=== PATIENT | female | born 1965 | race Caucasian/White ===

== ENCOUNTER 2018-05-04 21:08 | Inpatient (IN) | payer OTHER ==
[~2018-05-04] VITALS: Ht 162.6 cm; Wt 79.2 kg
[2018-05-04 21:37] VITALS: Ht 162.6 cm; Wt 79.2 kg
[2018-05-04 23:45] LABS: BASOPHIL % 0.5 % (0-2); PLATELET COUNT 286 x10^3mcL (130-400)
[2018-05-04 23:55] LABS: ALBUMIN 4.2 g/dL (3.4-5.0); ALKALINE PHOSPHATASE 93 U/L (46-116); ALT/SGPT 30 U/L (14-59); AST/SGOT 15 U/L (15-37); BILIRUBIN TOTAL 1.2 mg/dL (0.20-1.00); CARBON DIOXIDE 30.6 mmol/L (21-32); CHLORIDE SERUM 88 mmol/L (98-107); GLUCOSE SERUM 90 mg/dL (74-106); LIPASE 302 IU/L (73-393); POTASSIUM SERUM 3.8 mmol/L (3.5-5.1); SODIUM SERUM 125 mmol/L (136-145); TOTAL PROTEIN, SERUM 7.2 g/dL (6.4-8.2)
[2018-05-04 23:56] LABS: CREATININE SERUM 0.5 mg/dL (0.6-1.0); GFR1 > 60 mL/min
[2018-05-05 01:27] LABS: UA SPECIFIC GRAVITY <=1.005 (1.005-1.035); microscopic required? YES; urine erythrocyte NEGATIVE (NEGATIVE)
[2018-05-05] MEDS ORDERED: METFORMIN HCL850 MG PO (01:59)
[2018-05-05] MEDS ORDERED: HYDROCHLOROTHIA25 MG PO (02:00)
[2018-05-05] MEDS ORDERED: LOSARTAN POTASS50 M1 PO (02:00)
[2018-05-05] MEDS ORDERED: ACT30 (02:00)
[2018-05-05] MEDS ORDERED: CYMBALTA30 M1 PO (02:23)
[2018-05-05 02:29] LABS: MAGNESIUM 1.2 mg/dL (1.8-2.4); PHOSPHOROUS 3.4 mg/dL (2.5-4.9)
[2018-05-05 02:40] LABS: FREE T4 1.41 ng/dL (0.76-1.46); FREE THYROXINE INDEX 3.3 ug/dL (1.4-4.5); T4(THYROXINE) 8.8 ug/dL (4.7-13.3)
[2018-05-05 02:41] LABS: T3 TOTAL 1.11 ng/mL
[2018-05-05 02:48] LABS: AMPHETAMINE QUAL UR NONE DETECTED (See below)
[2018-05-05 03:51] VITALS: BP 134/70
[2018-05-05 05:38] LABS: CALCIUM 9.5 mg/dL (8.5-10.1); CARBON DIOXIDE 28.6 mmol/L (21-32); CHLORIDE SERUM 97 mmol/L (98-107); GLUCOSE SERUM 116 mg/dL (74-106); MAGNESIUM 1.2 mg/dL (1.8-2.4); PHOSPHOROUS 3.4 mg/dL (2.5-4.9); PLATELET COUNT 280 x10^3mcL (130-400); POTASSIUM SERUM 3.6 mmol/L (3.5-5.1); RED CELL DISTRIBUTION WIDTH 13.9 % (11.5-14.5); SODIUM SERUM 131 mmol/L (136-145)
[2018-05-05 05:39] LABS: HDL CHOLESTEROL 88 mg/dL (40-60)
[2018-05-05 05:41] LABS: CREATININE SERUM 0.5 mg/dL (0.6-1.0); GFR1 > 60 mL/min
[2018-05-05 05:45] LABS: CHOLESTEROL 180 mg/dL (<200); TRIGLYCERIDES 121 mg/dL (<150)
[2018-05-05 08:45] VITALS: BP 120/75
[2018-05-05] MEDS ORDERED: LEVAQUIN750 MG PO (09:05)
[2018-05-05] MEDS ORDERED: LAC PO (09:05)
[2018-05-05] MEDS ORDERED: ZOF4 PO (09:12)
[2018-05-05 09:15] LABS: CALCIUM 9.6 mg/dL (8.5-10.1); CARBON DIOXIDE 28.5 mmol/L (21-32); CHLORIDE SERUM 97 mmol/L (98-107); CREATININE SERUM 0.5 mg/dL (0.6-1.0); GFR1 > 60 mL/min; GLUCOSE SERUM 99 mg/dL (74-106); POTASSIUM SERUM 3.9 mmol/L (3.5-5.1); SODIUM SERUM 133 mmol/L (136-145)
[2018-05-05 09:41] VITALS: BP 120/75
== END 2018-05-05 10:50 | disposition home or self-care (01) | DRG 463 ==
LOC: ED 21:08 → DU 05-05 01:20
PROVIDERS: Emergency Medicine; Family Medicine
DX: N39.0 Urinary tract infection, site not specified (principal); E11.40 Type 2 diabetes mellitus with diabetic neuropathy, unspecified; E87.8 Other disorders of electrolyte and fluid balance, not elsewhere classified; I10 Essential (primary) hypertension; E86.0 Dehydration; E87.1 Hypo-osmolality and hyponatremia; F17.210 Nicotine dependence, cigarettes, uncomplicated; E83.52 Hypercalcemia; G89.29 Other chronic pain; M19.90 Unspecified osteoarthritis, unspecified site; Z90.49 Acquired absence of other specified parts of digestive tract; Z83.3 Family history of diabetes mellitus; Z82.49 Family history of ischemic heart disease and other diseases of the circulatory system; Z72.89 Other problems related to lifestyle
CPT/HCPCS: 83880; 84439; J0696; J2270; J2405; J3475; J7030; Q0092

== ENCOUNTER 2019-01-04 06:08 | Day surgery (SDC) | payer OTHER ==
[~2019-01-04] VITALS: Ht 162.6 cm; Wt 72.6 kg
[~2019-01-04 06:08] MED LIST: ACT30; CYMBALTA30 M1 PO; HYDROCHLOROTHIA25 MG PO; LAC PO; LEVAQUIN750 MG PO; LOSARTAN POTASS50 M1 PO; METFORMIN HCL850 MG PO; ZOF4 PO
[2019-01-04 06:40] VITALS: BP 130/775
[2019-01-04 13:20] VITALS: BP 135/68
== END 2019-01-04 12:25 | disposition home or self-care (01) ==
LOC: DS 06:08 → OR 07:30 → DS 07:30
PROVIDERS: Podiatrist
PROC: 0JJW0ZZ Inspection of Lower Extremity Subcutaneous Tissue and Fascia, Open Approach (ICD-10-PCS; 2019-01-04)
PROC: 0KNW0ZZ Release Left Foot Muscle, Open Approach (ICD-10-PCS; principal; 2019-01-04 07:30)
DX: M72.2 Plantar fascial fibromatosis (principal); M67.472 Ganglion, left ankle and foot; E11.41 Type 2 diabetes mellitus with diabetic mononeuropathy; E11.59 Type 2 diabetes mellitus with other circulatory complications; I10 Essential (primary) hypertension; F17.210 Nicotine dependence, cigarettes, uncomplicated
CPT/HCPCS: 82962; J0690; J1170; J2001; J2175; J2250; J2405; J2704; J3010; J3490; J7030